=== PATIENT | female | born 2000 | race Caucasian/White ===

== ENCOUNTER 2018-06-13 03:06 | Emergency (ER) | payer OTHER ==
[2018-06-13 03:30] VITALS: RESP 18; TEMP 99
--- NOTE | 2018-06-13 03:42 | ED PDOC ---
Arrival/HPI - General Chief Complaint: ENT Problem Time Seen by Provider: 06/13/18 03:10 Historian: Patient - History of Present Illness Narrative History of Present Illness (Text): 06/13/18 03:33 18 year old female, with no significant past medical history, presents to the emergency department with foreign body in her left ear. Patient states she was using a nemo pin to clean out her ear. Patient states she attached a small rubber object to the end of it, and it seems to have fallen out inside her ear. Patient states she can feel it inside her ear, and is unable to make it come out. Patient denies any fevers, chills, headache, dizziness, chest pain, shortness of breath, cough, abdominal pain, nausea, vomiting, diarrhea, back pain, neck pain, or any other complaint. Time/Duration: Prior to Arrival Symptom Onset: Sudden Symptom Course: Unchanged Activities at Onset: Light Context: Home Past Medical History - Provider Review Nursing Documentation Reviewed: Yes - Past History Past History: No Previous - Reproductive Currently : No - Hematological/Oncological Hx Blood Disorders: Yes Hx Anemia: Yes - Psychiatric Hx Depression: No Hx Emotional Abuse: No Hx Physical Abuse: No Hx Substance Use: No - Past Surgical History Past Surgical History: No Previous - Suicidal Assessment Feels Threatened In Home Enviroment: No Family/Social History - Physician Review Nursing Documentation Reviewed: Yes Family/Social History: No Known Family HX Smoking Status: Never Smoked Hx Alcohol Use: No Hx Substance Use: No Allergies/Home Meds Allergies/Adverse Reactions: Allergies No Known Allergies Allergy (Verified 09/19/12 13:29) Home Medications: Home Meds Medication Instructions Recorded Confirmed Iron Polysac/Iron Heme/FA/B12 1 tab PO DAILY 06/13/18 06/13/18 [Hemetab Iron Supplement Tablet] Review of Systems - Physician Review All systems were reviewed & negative as marked: Yes - Review of Systems Constitutional: absent: Fevers, Night Sweats Respiratory: absent: SOB, Cough Cardiovascular: absent: Chest Pain Gastrointestinal: absent: Abdominal Pain, Diarrhea, Nausea, Vomiting Musculoskeletal: absent: Back Pain, Neck Pain Neurological: absent: Headache, Dizziness Physical Exam Vital Signs Reviewed: Yes Vital Signs Temp Pulse Resp BP Pulse Ox 06/13/18 03:27 99.0 F 86 18 128/64 99 Temperature: Afebrile Blood Pressure: Normal Pulse: Regular Respiratory Rate: Normal Appearance: Positive for: Well-Appearing, Non-Toxic, Comfortable Pain Distress: None Mental Status: Positive for: Alert and Oriented X 3 - Systems Exam Head: Present: Atraumatic, Normocephalic Pupils: Present: PERRL Extroacular Muscles: Present: EOMI Conjunctiva: Present: Normal Ears: Present: Other (faint barely visible translucent foreign body deep in the left ear canal) Mouth: Present: Moist Mucous Membranes Respiratory/Chest: Present: Clear to Auscultation, Good Air Exchange. No: Respiratory Distress, Accessory Muscle Use Cardiovascular: Present: Regular Rate and Rhythm, Normal S1, S2. No: Murmurs Neurological: Present: GCS=15, CN II-XII Intact, Speech Normal Skin: Present: Warm, Dry, Normal Color. No: Rashes Psychiatric: Present: Alert, Oriented x 3, Normal Insight, Normal Concentration Medical Decision Making ED Course and Treatment: 06/13/18 05:07 Multiple attempts at removing the foreign body unsuccessful with instruments available.Further attemps halted so as to not cause any harm to the area.Patient instructed to follow up today with (ENT) at the [place] office for further care. - Scribe Statement The provider has reviewed the documentation as recorded by the Keith Carlton Provider Scribe Attestation: All medical record entries made by the Scribe were at my direction and personally dictated by me. I have reviewed the chart and agree that the record accurately reflects my personal performance of the history, physical exam, medical decision making, and the department course for this patient. I have also personally directed, reviewed, and agree with the discharge instructions and disposition. Disposition/Present on Arrival - Present on Arrival Any Indicators Present on Arrival: No History of DVT/PE: No History of Uncontrolled Diabetes: No Urinary Catheter: No History of Decub. Ulcer: No History Surgical Site Infection Following: None - Disposition Have Diagnosis and Disposition been Completed?: Yes Diagnosis: Foreign body in left ear Disposition: HOME/ ROUTINE Disposition Time: 05:04 Patient Plan: Discharge Condition: STABLE Additional Instructions: Place nothing in ear canal/FOLLOW UP WITH THE EAR/NOSE/THROAT doctor later today Referrals: Austin Mohamud DO [Staff Provider] - Follow up with primary Forms: [employer] (Polish)
[2018-06-13 05:26] VITALS: BP 124/68; PULSE 82; O2SAT 100
== END 2018-06-13 05:20 | disposition home or self-care (01) ==
LOC: ED 03:06
DX: T16.2XXA Foreign body in left ear, initial encounter (principal); X58.XXXA Exposure to other specified factors, initial encounter